=== PATIENT | female | born 1980 | race Caucasian/White ===

== ENCOUNTER 2020-09-06 18:35 | Emergency (ER) | payer OTHER ==
[~2020-09-06] VITALS: Ht 167.6 cm; Wt 72.7 kg
[2020-09-06] MEDS ORDERED: LORazepam 2 MG/ML VIAL ONE (19:28)
[2020-09-06] MEDS ORDERED: DiphenhydrAMINE HCL 50 MG/ML VIAL ONE (19:29)
[2020-09-06] MEDS ORDERED: HALOPERIDOL LACTATE 5 MG/ML VIAL ONE (19:29)
[2020-09-06] MEDS ORDERED: HALOPERIDOL LACTATE 5 MG/ML VIAL IM ONE (19:30)
[2020-09-06] MEDS ORDERED: DiphenhydrAMINE HCL 50 MG/ML VIAL IM ONE (19:30)
[2020-09-06] MEDS ORDERED: LORazepam 2 MG/ML VIAL IM ONE (19:30)
[2020-09-06 20:06] LABS: COVID AG,FIA SOURCE NASOPHARYNGEAL
[2020-09-06] MEDS ORDERED: LORazepam 2 MG TABLET PO PRN (21:00)
[2020-09-06] MEDS ORDERED: HALOPERIDOL 5 MG TABLET PO PRN (21:00)
[2020-09-06] MEDS ORDERED: ZOLPIDEM TARTRATE 10 MG TABLET PO PRN (21:00)
[2020-09-06 21:22] LABS: BASOPHILS % (AUTO) 0.1 % (0.0-2.0); EOSINOPHILS % (AUTO) 0.1 % (1.0-6.0); HEMATOCRIT 35.7 % (36-46); HEMOGLOBIN 11.9 g/dL (12.0-16.0); LYMPHOCYTES # (AUTO) 1.9 K/uL (1.0-4.8); LYMPHOCYTES % (AUTO) 15.1 % (22.0-44.0); MEAN CORPUSCULAR HEMOGLOBIN 30.2 pg (26.0-34.0); MEAN CORPUSCULAR HGB CONC 33.2 G/dL (31.0-37.0); MEAN CORPUSCULAR VOLUME 91 fL (80-100); MONOCYTES # (AUTO) 0.8 K/uL (0.1-1.0); MONOCYTES % (AUTO) 6.4 % (2.0-9.0); NEUTROPHILS # (AUTO) 9.6 K/uL (1.8-7.7); NEUTROPHILS % (AUTO) 78.3 % (40.0-70.0); PLATELET COUNT (AUTO) 245 K/uL (150-450); RED BLOOD CELL COUNT(AUTO) 3.93 MIL/uL (4.00-5.20); RED CELL DISTRIBUTION WIDTH 13.3 % (11.5-14.5)
[2020-09-06 21:31] LABS: AMPHET/METH SCREEN,URINE NEGATIVE (NEGATIVE); BARBITURATE SCREEN, URINE NEGATIVE (NEGATIVE); BENZODIAZEPINES SCREEN,URINE POSITIVE (NEGATIVE); CANNABINOID SCREEN,URINE NEGATIVE (NEGATIVE); COCAINE SCREEN,URINE NEGATIVE (NEGATIVE); METHADONE SCREEN, URINE NEGATIVE (NEGATIVE); OPIATE SCREEN,URINE NEGATIVE (NEGATIVE)
[2020-09-06 21:34] LABS: PHENCYCLIDINE SCREEN,URINE NEGATIVE (NEGATIVE)
[2020-09-06 21:35] LABS: ANION GAP 9 mmol/L (8-16); CALCIUM, TOTAL 8.7 mg/dL (8.8-10.5); CARBON DIOXIDE 25 mmol/L (22-29); CHLORIDE 108 mmol/L (98-107); CREATININE 0.73 mg/dL (0.60-1.30); GLOMERULAR FILTR. RATE CALC > 60 mL/min (>60); GLUCOSE,RANDOM 98 mg/dL (70-110); POTASSIUM 3.6 mmol/L (3.5-5.1); SODIUM SERUM 142 mmol/L (136-145); UREA NITROGEN, BLOOD 12 mg/dL (7-18)
[2020-09-06 22:01] LABS: ALANINE AMINOTRANSFERASE 17 U/L (12-78); ALBUMIN 3.5 g/dL (3.4-5.0); ALKALINE PHOSPHATASE 36 U/L (46-116); ASPARTATE AMINOTRANSFERASE 21 U/L (15-37); BILIRUBIN,TOTAL 0.3 mg/dL (0.1-1.0); CREATINE KINASE, TOTAL ONLY 140 U/L (26-192); FREE T4 (FREE THYROXINE) 1.11 ng/dL (0.76-1.46); HCG,QUANTITATIVE < 1 mIU/mL (0-6); TOTAL PROTEIN, SERUM 6.6 g/dL (6.4-8.2)
[2020-09-07 00:58] LABS: CHOL/HDL RATIO 2.3 (3.9-5.7); CHOLESTEROL 148 mg/dL (131-200); HDL CHOLESTEROL 65 mg/dL (40-60); LDL CHOL (CALC.) 74 mg/dL (0-130); TRIGLYCERIDES 43 mg/dL (15-150)
[2020-09-07 15:30] VITALS: BP 115/66
== END 2020-09-07 16:16 | disposition home or self-care (01) ==
LOC: EMS 18:35
DX: F20.9 Schizophrenia, unspecified (principal); Z20.822 Contact with and (suspected) exposure to COVID-19
CPT/HCPCS: 36415; 80053; 80061; 80307; 82550; 84439; 84443; 84702; 85025; 87426; 96372; 99285; G0480; J1200; J1630; J2060; 51701

== ENCOUNTER 2020-12-10 21:35 | Inpatient (IN) | payer OTHER ==
[~2020-12-10] VITALS: Ht 170.2 cm; Wt 70.8 kg
[2020-12-10] MEDS ORDERED: QUET100T33 PO (22:42)
[2020-12-10 22:47] LABS: AMPHET/METH SCREEN,URINE NEGATIVE (NEGATIVE); BARBITURATE SCREEN, URINE NEGATIVE (NEGATIVE); BENZODIAZEPINES SCREEN,URINE NEGATIVE (NEGATIVE); CANNABINOID SCREEN,URINE POSITIVE (NEGATIVE); COCAINE SCREEN,URINE NEGATIVE (NEGATIVE); METHADONE SCREEN, URINE NEGATIVE (NEGATIVE); OPIATE SCREEN,URINE NEGATIVE (NEGATIVE)
[2020-12-10 22:48] LABS: PHENCYCLIDINE SCREEN,URINE NEGATIVE (NEGATIVE)
[2020-12-10 23:04] LABS: BASOPHILS % (AUTO) 0.3 % (0.0-2.0); EOSINOPHILS % (AUTO) 1.7 % (1.0-6.0); HEMATOCRIT 40.3 % (36-46); HEMOGLOBIN 12.9 g/dL (12.0-16.0); LYMPHOCYTES # (AUTO) 2.1 K/uL (1.0-4.8); LYMPHOCYTES % (AUTO) 21.3 % (22.0-44.0); MEAN CORPUSCULAR HEMOGLOBIN 30.2 pg (26.0-34.0); MEAN CORPUSCULAR VOLUME 94 fL (80-100); MONOCYTES # (AUTO) 0.7 K/uL (0.1-1.0); MONOCYTES % (AUTO) 7.1 % (2.0-9.0); NEUTROPHILS # (AUTO) 6.7 K/uL (1.8-7.7); NEUTROPHILS % (AUTO) 69.6 % (40.0-70.0); PLATELET COUNT (AUTO) 304 K/uL (150-450); RED BLOOD CELL COUNT(AUTO) 4.28 MIL/uL (4.00-5.20); RED CELL DISTRIBUTION WIDTH 13.2 % (11.5-14.5)
[2020-12-10 23:14] LABS: CARBON DIOXIDE 29 mmol/L (22-29); CREATININE 0.69 mg/dL (0.60-1.30); GLUCOSE,RANDOM 115 mg/dL (70-110); UREA NITROGEN, BLOOD 11 mg/dL (7-18)
[2020-12-10 23:15] LABS: CALCIUM, TOTAL 8.9 mg/dL (8.8-10.5); GLOMERULAR FILTR. RATE CALC > 60 mL/min (>60)
[2020-12-10 23:26] LABS: ALANINE AMINOTRANSFERASE 23 U/L (12-78); ALBUMIN 3.6 g/dL (3.4-5.0); ALKALINE PHOSPHATASE 43 U/L (46-116); ANION GAP 5 mmol/L (8-16); ASPARTATE AMINOTRANSFERASE 21 U/L (15-37); BILIRUBIN,TOTAL 0.2 mg/dL (0.1-1.0); CHLORIDE 104 mmol/L (98-107); HCG,QUANTITATIVE < 1 mIU/mL (0-6); SODIUM SERUM 138 mmol/L (136-145); TOTAL PROTEIN, SERUM 6.6 g/dL (6.4-8.2)
[2020-12-11] MEDS ORDERED: LORazepam 1 MG TABLET PO ONE (02:45)
[2020-12-11 03:24] LABS: COVID AG,FIA SOURCE NASOPHARYNGEAL
[2020-12-11] MEDS ORDERED: ZOLPIDEM TARTRATE 10 MG TABLET PO PRN (03:30)
[2020-12-11] MEDS ORDERED: LORazepam 2 MG TABLET PO PRN (03:30)
[2020-12-11] MEDS ORDERED: HALOPERIDOL 5 MG TABLET PO PRN (03:30)
[2020-12-11 17:58] VITALS: BP 118/79
[2020-12-11] MEDS ORDERED: IBUPROFEN 400 MG TABLET PO PRN (20:45)
[2020-12-12 04:29] VITALS: BP 119/75
[2020-12-12 06:45] LABS: CHOL/HDL RATIO 2.6 (3.9-5.7)
[2020-12-12 08:23] VITALS: BP 117/68
[2020-12-12] MEDS ORDERED: NICOTINE 14 MG/24 HOUR PATCH TD PRN (09:45)
[2020-12-12] MEDS ORDERED: PETROLATUM,WHITE 28 GM JELLY TP PRN (09:45)
[2020-12-12] MEDS ORDERED: DOCUSATE SODIUM 100 MG CAPSULE PO PRN (09:45)
[2020-12-12] MEDS ORDERED: ONDANSETRON HCL 4 MG TABLET PO PRN (09:45)
[2020-12-12] MEDS ORDERED: GuaiFENesin/D-METHORPHAN [SUGAR-FREE] 200-20MG/10 ML SYRUP UDCUP PO PRN (09:45)
[2020-12-12] MEDS ORDERED: ACETAMINOPHEN 325 MG TABLET PO PRN (09:45)
[2020-12-12] MEDS ORDERED: MAG HYDROX/AL HYDROX/SIMETH ES 30 ML SUSPENSION UDCUP PO PRN (09:45)
[2020-12-12] MEDS ORDERED: CloNIDine HCL 0.1 MG TABLET PO PRN (09:45)
[2020-12-12] MEDS ORDERED: ALBUTEROL SULFATE HFA 90 MCG/PUFF 8 GM INHALER IH PRN (09:45)
[2020-12-12] MEDS ORDERED: LOPERAMIDE HCL 2 MG CAPSULE PO PRN (09:45)
[2020-12-12] MEDS ORDERED: MAGNESIUM HYDROXIDE SUSPENSION 30 ML UDCUP PO PRN (09:45)
[2020-12-12] MEDS ORDERED: IBUPROFEN 400 MG TABLET PO PRN (09:45)
[2020-12-12 16:00] VITALS: BP 110/65
[2020-12-12] MEDS: MIRTAZAPINE 15 MG TABLET PO SCH (20:16)
[2020-12-13 08:30] VITALS: BP 100/68
[2020-12-13 17:07] VITALS: BP 137/69
[2020-12-13] MEDS: MIRTAZAPINE 15 MG TABLET PO SCH (20:14)
[2020-12-14 08:17] VITALS: BP 107/69
[2020-12-14 16:13] VITALS: BP 102/62
[2020-12-14] MEDS: MIRTAZAPINE 15 MG TABLET PO SCH (20:09)
[2020-12-15 06:05] VITALS: BP 105/64
[2020-12-15 08:30] VITALS: BP 130/64
== END 2020-12-15 13:50 | disposition home or self-care (01) | DRG 885 ==
LOC: EMS 21:35 → 3EI 12-11 16:45
PROVIDERS: ADMIT Psychiatry & Neurology Child & Adolescent Psychiatry; ATTEND Psychiatry & Neurology Child & Adolescent Psychiatry
DX: F33.3 Major depressive disorder, recurrent, severe with psychotic symptoms (principal); R45.851 Suicidal ideations; E86.0 Dehydration; F12.10 Cannabis abuse, uncomplicated; F41.0 Panic disorder [episodic paroxysmal anxiety]; G47.00 Insomnia, unspecified; Z20.822 Contact with and (suspected) exposure to COVID-19; K59.00 Constipation, unspecified; R03.0 Elevated blood-pressure reading, without diagnosis of hypertension; R10.13 Epigastric pain; R73.9 Hyperglycemia, unspecified; Z59.0 Homelessness; Z79.899 Other long term (current) drug therapy
CPT/HCPCS: 80053; 80061; 84702; 85025; 99285; G0480; J3535

== ENCOUNTER 2025-06-12 05:33 | Inpatient (IN) | payer OTHER ==
[~2025-06-12] VITALS: Ht 170.2 cm; Wt 85.1 kg
[~2025-06-12 05:33] MED LIST: QUET100T34 PO
[2025-06-12 06:10] LABS: COVID AG,FIA SOURCE NASAL SWAB
[2025-06-12 06:10] LABS: CALCIUM, TOTAL 8.1 mg/dL (8.8-10.5); CREATININE 0.75 mg/dL (0.60-1.30); GLOMERULAR FILTR. RATE CALC > 60 mL/min (>60); GLUCOSE,RANDOM 105 mg/dL (70-110); PLATELET COUNT (AUTO) 299 K/uL (150-450); RED BLOOD CELL COUNT(AUTO) 3.97 MIL/uL (4.00-5.20); RED CELL DISTRIBUTION WIDTH 13.8 % (11.5-14.5); SODIUM SERUM 140 mmol/L (136-145); UREA NITROGEN, BLOOD 18 mg/dL (7-18); WHITE BLOOD COUNT (AUTO) 9.8 K/uL (4.5-11.0)
[2025-06-12] MEDS: ACETAMINOPHEN 500 MG TABLET PO ONE (06:25)
[2025-06-12 06:54] LABS: APPEARANCE,URINE CLEAR (CLEAR); GLUCOSE, URINE (UA) NEGATIVE (NEGATIVE); LEUKOCYTE ESTERASE ,URINE NEGATIVE (NEGATIVE); NITRATE,URINE NEGATIVE (NEGATIVE); OCCULT BLOOD,URINE NEGATIVE (NEGATIVE); PH,URINE DRUG SCREEN 5.5 (5.0-8.0); SPECIFIC GRAVITIY, URINE 1.016 (1.003-1.030)
[2025-06-12 06:58] LABS: ALCOHOL, URINE DRUG SCREEN NEGATIVE (NEGATIVE); AMPHET/METH SCREEN,URINE NEGATIVE (NEGATIVE); BARBITURATE SCREEN, URINE NEGATIVE (NEGATIVE); CANNABINOID SCREEN,URINE NEGATIVE (NEGATIVE); COCAINE SCREEN,URINE NEGATIVE (NEGATIVE); METHADONE SCREEN, URINE NEGATIVE (NEGATIVE)
[2025-06-12 07:53] LABS: SARS-COV2 (COVID) ANTIGEN,FIA Negative (Negative)
[2025-06-12 09:28] VITALS: O2SAT 99
[2025-06-12] MEDS ORDERED: ACETAMINOPHEN 325 MG TABLET PO PRN (12:15)
[2025-06-12] MEDS ORDERED: INFLUENZA VIRUS VACCINE TVS (6MO+) 2025-26/PF 45 MCG/0.5 ML SYRINGE IM. ONE (12:15)
[2025-06-12] MEDS ORDERED: ALBUTEROL SULFATE HFA 90 MCG/PUFF 8 GM INHALER IH PRN (12:15)
[2025-06-12] MEDS ORDERED: LOPERAMIDE HCL 2 MG CAPSULE PO PRN (12:15)
[2025-06-12] MEDS ORDERED: OMEPRAZOLE 20 MG CAPSULE PO PRN (12:15)
[2025-06-12] MEDS ORDERED: BACITRACIN 28 GM OINTMENT TP PRN (12:15)
[2025-06-12] MEDS ORDERED: MAG HYDROX/ALUMINUM HYD/SIMETH ES 30 ML SUSPENSION UDCUP PO PRN (12:15)
[2025-06-12] MEDS ORDERED: DOCUSATE SODIUM 100 MG CAPSULE PO PRN (12:15)
[2025-06-12] MEDS ORDERED: PETROLATUM,WHITE 28 GM JELLY TP PRN (12:15)
[2025-06-12] MEDS ORDERED: MAGNESIUM HYDROXIDE SUSPENSION 30 ML UDCUP PO PRN (12:15)
[2025-06-12] MEDS ORDERED: IBUPROFEN 600 MG TABLET PO PRN (12:15)
[2025-06-12] MEDS ORDERED: ONDANSETRON 4 MG TABLET PO PRN (12:15)
[2025-06-12] MEDS: BENZOCAINE/MENTHOL [CEPACOL] LOZENGE PO PRN (12:20)
[2025-06-12 12:41] VITALS: BP 125/89; PULSE 75; RESP 18; TEMP 98.4; O2SAT 100
[2025-06-12] MEDS: DIVALPROEX SODIUM 500 MG DR TABLET PO SCH (16:24)
[2025-06-12] MEDS: LITHIUM CARBONATE 300 MG CAPSULE PO SCH (16:24)
[2025-06-12] MEDS: LORazepam 2 MG/ML VIAL IM ONE (17:58)
[2025-06-12 20:10] VITALS: BP 128/82; PULSE 85; RESP 18; TEMP 97.8; O2SAT 98
[2025-06-13] MEDS: POTASSIUM CHLORIDE 20 MEQ ER TABLET PO ONE (06:30)
[2025-06-13 08:32] VITALS: BP 127/75; PULSE 76; RESP 16; TEMP 97.7; O2SAT 99
[2025-06-13 08:40] LABS: ASPARTATE AMINOTRANSFERASE 25 U/L (15-37); CALCIUM, TOTAL 8.5 mg/dL (8.8-10.5); CHOL/HDL RATIO 2.4 (3.9-5.7); CREATININE 0.47 mg/dL (0.60-1.30); GLOMERULAR FILTR. RATE CALC > 60 mL/min (>60); GLUCOSE,RANDOM 99 mg/dL (70-110); LDL CHOL (CALC.) 87 mg/dL (0-130); SODIUM SERUM 140 mmol/L (136-145); TOTAL PROTEIN, SERUM 6.6 g/dL (6.4-8.2); UREA NITROGEN, BLOOD 7 mg/dL (7-18)
[2025-06-13 20:00] VITALS: BP 122/77; PULSE 85; RESP 17; TEMP 97.7; O2SAT 98
[2025-06-14 08:17] VITALS: BP 136/97; PULSE 92; RESP 17; TEMP 98; O2SAT 100
[2025-06-14 20:22] VITALS: BP 140/77; PULSE 82; RESP 18; TEMP 97.8; O2SAT 99
[2025-06-14] MEDS: ZOLPIDEM TARTRATE 10 MG TABLET PO PRN (21:08)
[2025-06-15 08:29] VITALS: BP 113/80; PULSE 99; RESP 17; TEMP 98; O2SAT 100
[2025-06-15] MEDS ORDERED: DIVA-112 PO (10:20)
[2025-06-15] MEDS ORDERED: LITH300C3 PO (10:20)
[2025-06-15] MEDS ORDERED: RISP3TAB77 PO (10:21)
== END 2025-06-15 11:28 | disposition home or self-care (01) | DRG 885 ==
LOC: EMS 05:42 → B3A 09:39
PROVIDERS: ADMIT Psychiatry & Neurology Psychiatry; ATTEND Psychiatry & Neurology Psychiatry
DX: F31.9 Bipolar disorder, unspecified (principal); F25.0 Schizoaffective disorder, bipolar type; E03.9 Hypothyroidism, unspecified; Z20.822 Contact with and (suspected) exposure to COVID-19; E87.6 Hypokalemia; F41.9 Anxiety disorder, unspecified; G47.00 Insomnia, unspecified; K59.00 Constipation, unspecified; M25.532 Pain in left wrist; Z79.899 Other long term (current) drug therapy; Z91.148 Patient's other noncompliance with medication regimen for other reason
CPT/HCPCS: 80048; 80053; 80061; 80307; 81003; 83036; 84132; 84439; 84443; 84703; 85025; G0480; J1200; J1630; J2060